=== PATIENT | male | born 1960 | race Caucasian/White ===

== ENCOUNTER 2018-11-11 18:53 | Emergency (ER) | payer MEDICAID ==
[~2018-11-11] VITALS: Ht 160 cm; Wt 57.8 kg
[2018-11-11 18:56] VITALS: BP 182/87; PULSE 87; RESP 20; Ht 160 cm; Wt 57.8 kg
[2018-11-11] MEDS ORDERED: GLYB1.252 PO (19:20)
[2018-11-11] MEDS ORDERED: METF-849 PO (19:20)
[2018-11-11] MEDS ORDERED: LANT3I SC (19:20)
[2018-11-11] MEDS ORDERED: PARO40TA63 PO (19:20)
[2018-11-11] MEDS ORDERED: LANC1KIT83 MC (19:22)
--- NOTE | 2018-11-11 22:16 | ERD ---
ER Documentation Chief Complaint Chief Complaint out of diabetic meds x1week; needs refill of all meds HPI 58-year-old male presented to the emergency department requesting medication refill. He is requesting refills of lancets to check his blood sugar, glyburide, insulin glargine, and Paxil and metformin. He states he has been out for approximately 1 week. He has been checking his home sugars at home which have been within normal range for him. He denies any fevers, chills, abdominal pain, chest pain, or other symptoms at this time. ROS All systems reviewed and are negative except as per history of present illness. Medications Home Meds Active Scripts Lancing Device/Lancets (ACCU-CHEK FASTCLIX LANCET KIT) 1 Each Kit, EACH MC, #1 Prov:ZAKI ROSS PA-C 11/11/18 Glyburide* (Glyburide*) 1.25 Mg Tablet, 1.25 MG PO BID, #60 TAB Prov:ZAKI ROSS PA-C 11/11/18 Insulin Glargine* (Lantus*) 100 Unit/Ml Soln, 1 UNIT SC DAILY, #1 VIAL 30 units daily Prov:ZAKI ROSS PA-C 11/11/18 Paroxetine Hcl* (Paxil*) 40 Mg Tablet, 40 MG PO DAILY, #10 TAB Prov:ZAKI ROSS PA-C 11/11/18 Metformin* (Glucophage*) 500 Mg Tab, 500 MG PO BID, #20 TAB Prov:ZAKI ROSS PA-C 11/11/18 Allergies Allergies: Coded Allergies: No Known Allergy (Unverified , 11/11/18) PMhx/Soc Hx Miscellaneous Medical Probl: Yes (Diabetes, depression) FmHx Family History: No diabetes Physical Exam Vitals Vital Signs Date Temp Pulse Resp B/P (MAP) Pulse Ox O2 O2 Flow FiO2 Time Delivery Rate 11/11/18 97.6 87 20 182/87 97 18:56 (118) Physical Exam Const: No acute distress Head: Atraumatic Eyes: Normal Conjunctiva ENT: Normal External Ears, Nose and Mouth. Neck: Full range of motion. No meningismus. Resp: Clear to auscultation bilaterally Cardio: Regular rate and rhythm, no murmurs Skin: No petechiae or rashes Back: No midline or flank tenderness Ext: No cyanosis, or edema Neur: Awake and alert Psych: Normal Mood and Affect Procedures/MDM 58-year-old male presented to the emergency department requesting medication refills. He will be refilled 1 months prescriptions exactly as prescribed by his primary care physician. No evidence of life-threatening or emergent pathology. Patient was advised to return to the department immediately for any new or worsening or concerning symptoms. He was in agreement with the diagnosis, plan, need for follow-up, return precautions. Patient's blood pressure was elevated (>120/80) but appears stable without evidence of hypertension emergency or urgency. The patient is to follow-up and pursue outpatient monitoring and therapy with their primary care physician within 1 week and return immediately if they have any new, worsening, or concerning symptoms. Departure Diagnosis: Primary Impression: Encounter for medication refill Condition: Fair Patient Instructions: Taking Medicine Safely [facility] Usted se alicea hecho un examen mdico de control que le indica que no est en ronaldo condicin que requiera tratamiento urgente en el Departamento de Emergencia. Un estudio ms profundo y el tratamiento de lozoya condicin pueden esperar sin ningn riesgo hasta que usted sea atendida/o en el consultorio de lozoya mdico o ronaldo clnica. Es responsabilidad suya arreglar ronaldo milla para el seguimiento del ashwin. MANEJO DE CONDICIONES NO URGENTES EN EL FUTURO 1) Si usted tiene un mdico de atencin primaria: Usted debera llamar a lozoya mdico de atencin primaria antes de venir al departamento de emergencia. Despus de las horas de consultorio, lozoya doctor o lozoya asociado/a est disponible por telfono. El mdico o enfermero de kari en el servicio telefnico puede asesorarle por elder medio para atender el problema, o ashwin contrario se puede programar ronaldo milla. 2) Si usted no tiene un mdico de atencin primaria: Llame al mdico o clnica de referencia que aparece abajo valdo las horas de consultorio para hacer ronaldo milla para que le vean. CLINICAS: [place] [id number] [phone] [facility] [phone] [place] [id number] [phone] [place] [id number] [phone] [place] [address] [phone] [place] [id number] [phone] Additional Instructions: Llame al doctor MAANA y adryan ronaldo MILLA [address]Dgale a la secretaria que nosotros le instruimos hacer esta milla.Avise o llame si lozoya condicin se empeora antes de la milla. Regresa aqui si peor o no mejor. ZAKI ROSS PA-C November 11, 2018 22:16
== END 2018-11-11 19:41 | disposition home or self-care (01) ==
LOC: E/R 18:53
DX: Z76.0 Encounter for issue of repeat prescription (principal); Z79.4 Long term (current) use of insulin
CPT/HCPCS: 99283